=== PATIENT | male | born 1995 | race Caucasian/White ===

== ENCOUNTER 2022-02-07 07:41 | Emergency (ER) | payer BC, SELFPAY ==
--- NOTE | ~2022-02-07 | CT_ITS ---
EXAMINATION: CT HEAD WITHOUT CONTRAST CLINICAL INFORMATION: Left facial numbness. Confusion. COMPARISON: No relevant prior imaging. TECHNIQUE: Contiguous axial imaging was performed from the skull base to vertex without intravenous administration of contrast. This CT examination was performed using dose optimization techniques as appropriate, variously including the following: *Automated exposure control *Adjustment of mA and/or kV according to patient size (this includes techniques or standardized protocols for targeted exams where dose is matched to indication/reason for exam; i.e. extremities or head) *Use of iterative reconstruction technique DLP: 788 mGy-cm FINDINGS: There is no acute intracranial hemorrhage or abnormal extra-axial collection. No intracranial mass effect or midline shift. Lateral and third ventricles are normal. No hydrocephalus. Cerda-white matter differentiation is preserved and there is no evidence of acute territorial infarct. The calvarium and skull base are intact. Mastoid air cells and middle ear cavities are well aerated. No active paranasal sinus disease. CT/CT head/brain wo con IMPRESSION: Normal CT scan of the head.
[2022-02-07 08:03] VITALS: BP 150/96; PULSE 87; RESP 16; O2SAT 97
[2022-02-07 08:31] VITALS: BMI 30.8
--- NOTE | 2022-02-07 08:37 | ED_ITS ---
HPI - Neuro Symptoms/Deficit General Chief Complaint: Neuro Symptoms/Deficit Stated Complaint: facial numbness blurred vission Time Seen by Provider: 02/07/22 08:07 Source: patient Mode of arrival: ambulatory Limitations: no limitations History of Present Illness HPI Narrative: 26-year-old male who denies any medical history presenting to the ER with complaints of left facial numbness/weakness and left ear pain since 20:00 last night. Reports that he started to eat before he went to work and noticed that he was feeling funny on the left side of his face and was having difficulty chewing due to left-sided weakness of the face. He also reports a ringing sensation and pain to the left ear. Is concerned this could be related to wearing his air pods too long in his ears. 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 He reports that he does hike often. Denies any recent illnesses/viral syndromes that he is aware of, tick bites that he is aware of, history of herpes, fevers, chills, dizziness, headaches, neck pain/stiffness, trouble swallowing or breathing, chest pain or shortness of breath, dyspnea on exertion, orthopnea, palpitations, any other paresthesias, nausea/vomiting/diarrhea constipation, black or bloody stools, abdominal pain, recent falls or trauma, rashes or any other symptoms complaints or concerns at this time. Onset (ago): day(s) (Since 20:00 last night) Location: left face History of same: No Severity: mild Quality: weak, numb, tingling and constant Relieving factors: none Exacerbating factors: none Context: gradual onset On Anticoagulants: No Associated symptoms: other (See above) Treatments Prior to Arrival: none Related Data Previous Rx's Medication Instructions Recorded artificial tears(hypromellose) 0.5 1 drp ophthalmic (eye) BID PRN dry 02/07/22 % eye drops eye(s) #15 mL prednisone 20 mg tablet 60 mg PO DAILY bells palsy 7 days 02/07/22 #21 tabs valacyclovir 1 gram tablet 1,000 mg PO TID bells palsy 7 days 02/07/22 (Valtrex) #21 tabs Allergies Allergy/AdvReac Type Severity Reaction Status Date / Time No Known Allergies Allergy Verified 10/14/21 15:34 Review of Systems Review of Systems: Constitutional : No Fever, No Chills, No Night Sweats, No Fatigue, No Malaise ENT/Mouth : No Ear Pain, No Nasal Congestion, No Sinus Pain, No sore throat, No Rhinorrhea Eyes: +Blurry Vision, No Eye Pain, No Swelling, No Redness, No Foreign Body, No Discharge Cardiovascular : No Chest Pain, No SOB, No Dyspnea on Exertion, No Orthopnea, No Palpitations Respiratory : No Cough, No Sputum, No Wheezing, No Dyspnea Gastrointestinal : No Nausea, No Vomiting, No Diarrhea, No Constipation, No abdominal Pain, No Hematochezia, No Melena Genitourinary : No Dysuria, No Urinary Frequency, No Urinary Incontinence, No Urgency, No Flank Pain Musculoskeletal : No joint pain, No Myalgias Skin : No lacerations Neuro : + left facial droop/weakness/paresthesias, No Loss of Consciousness, No Dizziness, No Headache Yes all other systems are reviewed and are negative [facility] Past Medical History Attestation statement: The following information was validated with the patient. Source: old records reviewed and nursing notes reviewed Social History Social History Housing: House Patient Tobacco Use Status: Never used Tobacco e-Cigarette/Vaping Use: Never Used Second Hand Smoke Exposure: Yes Advance Directives: No Advance Directives Information Provided: Yes service: No Current occupational status: employed Current occupation: [employer] Current occupational exposures/hazards: No Cognitive needs: No Hearing needs: No Vision needs: No Physical Exam Vital Signs: Vital Signs: Last Vital Signs Pulse 87 02/07/22 08:03 Resp 16 02/07/22 08:03 BP 150/96 H 02/07/22 08:03 Pulse Ox 97 02/07/22 08:03 O2 Del Method 02/07/22 08:03 BMI result Body Mass Index 30.8 Vital signs have been reviewed as normal and appeared to be correct. Blood pressure 150/96. Heart rate normal. Respiration rate normal. Temperature normal. Oxygen saturation normal. Appearance: Alert. Oriented X3. No acute distress. Head: Normal external exam. Normocephalic. Atraumatic. Able to rotate head bilaterally. Eyes: PERRLA. EOMI. No nystagmus noted. Conjunctiva and sclera normal. unable to close left eye/lids, otherwise Eyelids normal. Corneal reflex normal. ENT: EAC normal. TM's Normal. Hearing normal. Pharynx normal. Uvula midline. tongue midline. Moist mucous membranes. No trismus noted. No drooling noted. No muffled voice noted. No nystagmus noted. Neck: Normal inspection. Neck supple. FROM. No adenopathy. Trachea midline. Thyroid Normal. No meningeal signs. No neck mass noted. CVS: Normal heart rate and rhythm. Heart sound normal. No murmurs noted. Pulses normal throughout. Respiratory: No respiratory distress. Painless inspiration. Breath sounds ayla l. No wheezes/rales/rhonchi noted. Chest nontender. No accessory muscle usage noted or decreased air movement noted. Abdomen: Soft and nontender. Bowel sounds normal in all 4 quadrants. No distention noted. No organomegaly noted. No visible injury noted. Back: No CVA tenderness. Full range of motion noted. Skin: Skin warm and dry. Normal skin color. Normal skin turgor. No rashes/lesions/lacerations noted. Extremities: No lower extremity edema. Extremities exhibit normal range of motion. Extremities nontender. Able to shrug shoulders bilaterally and keep up against resistance. Neuro: Oriented X 3. Patient noted to have left facial weakness unable to completely close his left eye/lids with associated left eyebrow sagging, and disappearance of the nasolabial fold and drooping at the left corner of the mouth/lip. Right facial muscles WNL. No weakness to right side of face. No additiona motor/sensory deficits except what is listed above. Reflexes normal. Moving all extremities. No focal motor deficits. Normal cognition. Speech normal. Gait normal. Strength 5/5 throughout for extremities b/l. No pronator drift. No tremor noted. No fasciculations noted. No rigidity noted. Muscle tone normal throughout. No asterixis noted. [id number] test normal. Heel to liriano test normal. Tandem gait normal. Does not sway with eyes open. Romberg test negative. Rapid alternating movement upper extremity normal. Rapid alternating movement lower extremity normal. Hand drop from overhead Misses face. Course Course Course Narrative: 8:30am - 26-year-old male who denies any medical history presenting to the ER with complaints of left facial numbness/weakness and left ear pain since 20:00 last night. Reports that he started to eat before he went to work and noticed that he was feeling funny on the left side of his face and was having difficulty chewing due to left-sided weakness of the face. He also reports a ringing sensation and pain to the left ear. Is concerned this could be related to wearing his air pods too long in his ears. 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 No other motor or sensory weakness. He has a normal steady gait. I discussed this case with Dr. Nayak and he agrees with the plan. Will obtain labs, CT scan of brain and treat for Granado's palsy. Patient understands agrees with this plan. Reevaluation(s) Reevaluation #1: - labs reviewed and patient is creatinine 1.46. Otherwise all other labs are within normal limits. UA revealed a trace of ketones otherwise no evidence of UTI. Lyme and HSV pending at this time. I did offer the patient a L of IV fluids although patient reports that he can just drink water he does not want to have an IV in at this time he just wants to go home and relax. I explained him this is very important due to he is dehydrated although he does not want an IV line or IV fluids at this time reports that he is not vomiting he can drink fluids on his own. Otherwise Will treat with Valtrex and steroids along with artificial tears. Will DC home with instructions return if any new or worsening symptoms follow up with primary care provider. Patient understands agrees with this plan. Time: 10:09 MDM - Neuro Symptoms/Deficit Medical Records Attestation: I reviewed the patient's medical records. Lab Data Attestation: I reviewed the patient's lab results. Result diagrams: 02/07/22 09:03 02/07/22 09:02 Labs: Lab Results 02/07/22 02/07/22 02/07/22 Range/Units 09:02 09:03 09:28 WBC 6.9 (4.8-10.8) X10*3/uL RBC 5.57 (4.60-5.80) X10*6/uL Hgb 16.0 (14.0-18.0) g/dl Hct 45.7 (42.0-52.0) % MCV 82.0 (80.0-98.0) fL MCH 28.7 (27.0-33.0) pg MCHC 35.0 (31.0-36.0) g/dl RDW 12.0 (11.0-16.0) % Plt Count 232 (160-400) X10*3/uL MPV 8.6 L (9.4-12.4) fL Immature Gran % (Auto) 0.3 (0.0-0.4) % Neut % (Auto) 53.9 (45-73) % Lymph % (Auto) 27.7 (20-40) % [place] % (Auto) 12.2 H (2-11) % Eos % (Auto) 5.5 H (0-4) % Baso % (Auto) 0.4 (0-2) % Lymph # (Auto) 1.9 (1.2-4.9) X10*3/uL [place] # (Auto) 0.8 (0.1-1.2) X10*3/uL Eos # (Auto) 0.4 (0.0-0.4) X10*3/uL Baso # (Auto) 0.0 (0.0-0.2) X10*3/uL Abs Immat Gran (auto) 0.02 (0.00-0.03) X10*3/uL Absolute Neuts (auto) 3.7 (2.0-8.3) x10*3/uL Absolute Nucleated RBC 0.000 (0.0-0.012) X10*3/uL Nucleated RBC % (auto) 0.0 (0.0-0.2) /100WBC Sodium 140 (135-145) mmol/L Potassium 4.5 (3.3-5.1) mmol/L Chloride 101 (96-108) mmol/L Carbon Dioxide 29 (22-29) mmol/L Anion Gap 15 (12-20) BUN 13 (9-16) mg/dL Creatinine 1.46 H (0.5-1.4) mg/dL Estim Creat Clear Calc 90.5 Estimated GFR 59 Random Glucose 105 (60-115) mg/dL Calcium 9.3 (8.4-10.2) mg/dL Magnesium 2.0 (1.6-2.6) mg/dL Total Bilirubin 1.0 (0.0-1.0) mg/dL AST 18 (5-37) U/L ALT 31 (0-40) U/L Alkaline Phosphatase 54 (39-117) U/L Total Protein 7.4 (6.5-8.0) g/dL Albumin 4.7 (3.5-5.0) g/dL Urine Color Yellow Urine Appearance Clear Urine pH 6.0 (5.0-8.0) Ur Specific [place] 1.025 (1.005-1.025) Urine Protein Trace (Neg-Trace) mg/dL Urine Glucose (UA) Negative (Negative) mg/dL Urine Ketones Trace (Negative) mg/dL Urine Blood Negative (Negative) Urine Nitrite Negative (Negative) Ur Leukocyte Esterase Negative (Negative) Imaging Data CT scan of brain without contrast: Attestation: I personally reviewed and interpreted this imaging study as follows: Radiologist's impression: FINDINGS: There is no acute intracranial hemorrhage or abnormal extra-axial collection. No intracranial mass effect or midline shift. Lateral and third ventricles are normal. No hydrocephalus. Cerda-white matter differentiation is preserved and there is no evidence of acute territorial infarct. The calvarium and skull base are intact. Mastoid air cells and middle ear cavities are well aerated. No active paranasal sinus disease. ? CT/CT head/brain wo con IMPRESSION: Normal CT scan of the head. Critical Care Time Critical Care Time Critical Care Time: Yes Total Critical Care Time: 60 Attestation: I personally attest to this time spent taking care of the patient Discharge Plan Discharge Clinical Impression: Facial paralysis/[place] palsy, Dehydration, JENNIFER (acute kidney injury) Patient Disposition: Home, Self-Care Instructions: Granado Palsy (ED) Additional Instructions: You have pending lab results if any are positive you will be contacted within 5- 7 days return if any new or worsening symptoms. You also are dehydrated you should drink at least a gal of water today and tomorrow to the help your kidney function/dehydration. You should also have repeat labs within 3-5 days by her primary care provider. Follow up with her primary care provider. Prescriptions: New prednisone 20 mg tablet 60 mg PO DAILY 7 Days Qty: 21 0RF valacyclovir [Valtrex] 1 gram tablet 1,000 mg PO TID 7 Days Qty: 21 0RF artificial tears(hypromellose) 0.5 % drops 1 drp ophthalmic (eye) BID PRN (Reason: dry eye(s)) Qty: 15 0RF Referrals: Navarro Ramirez, APARTMENT RENTAL CLERK-BC [Primary Care Provider] - 2 days Print Language: Lao
[2022-02-07 09:09] LABS: MANUAL DIFF FLAG NO
[2022-02-07 09:10] LABS: Basophils Percent Auto 0.4 % (0-2); Eosinophils Absolute Auto 0.4 X10*3/uL (0.0-0.4); Eosinophils Percent Auto 5.5 % (0-4); Hematocrit 45.7 % (42.0-52.0); Imm Gran Abs Auto 0.02 X10*3/uL (0.00-0.03); Imm Gran Pct Auto 0.3 % (0.0-0.4); Lymphocytes Absolute Auto 1.9 X10*3/uL (1.2-4.9); Lymphocytes Percent Auto 27.7 % (20-40); Mean Corpuscular Hemoglobin 28.7 pg (27.0-33.0); Mean Platelet Volume 8.6 fL (9.4-12.4); Monocytes Absolute Auto 0.8 X10*3/uL (0.1-1.2); Monocytes Percent Auto 12.2 % (2-11); Neutrophils Absolute Auto 3.7 x10*3/uL (2.0-8.3); Neutrophils Percent Auto 53.9 % (45-73); Platelet Count 232 X10*3/uL (160-400); Red Blood Count 5.57 X10*6/uL (4.60-5.80); White Blood Count 6.9 X10*3/uL (4.8-10.8)
[2022-02-07 09:34] LABS: Appearance Urine Clear; Color Urine Yellow; Glucose Urine UA Negative (Negative); Leukocyte Esterase Urine Negative (Negative); Nitrite Urine Negative (Negative); Specific Gravity - Urine 1.025 (1.005-1.025); Urine Blood Negative (Negative); Urine Ketones Trace mg/dL (Negative); Urine Protein Trace mg/dL (Neg-Trace)
[2022-02-07 09:39] LABS: Alanine Aminotransferase 31 U/L (0-40); Albumin Level 4.7 g/dL (3.5-5.0); Alkaline Phosphatase 54 U/L (39-117); Anion Gap 15 (12-20); Aspartate Amino Transferase 18 U/L (5-37); Blood Urea Nitrogen 13 mg/dL (9-16); Calcium 9.3 mg/dL (8.4-10.2); Carbon Dioxide 29 mmol/L (22-29); Chloride 101 mmol/L (96-108); Creatinine Clr Calc Pharmacy 90.5; Estimated Glomerular Filt Rate 59; Glucose Random 105 mg/dL (60-115); Potassium 4.5 mmol/L (3.3-5.1); Sodium 140 mmol/L (135-145); Total Protein 7.4 g/dL (6.5-8.0)
[2022-02-07] MEDS: predniSONE 20 MG TABLET 60 MG PO (09:44)
[2022-02-07] MEDS: valACYclovir HCL 1,000 MG TABLET 1000 MG PO (09:44)
[2022-02-07] MEDS: Artificial Tears 15 ML DROPS 1 DROP EYE-LEFT (10:16)
[2022-02-09 23:13] LABS: Herpes Simplex Type 1 IgG <0.90 index; Herpes Simplex Type 2 IgG <0.90 index
[2022-02-10 22:06] LABS: A. Phagocytphilium DNA,RT-PCR NOT DETECTED (NOT DETECTED); Babesia Microti DNA, RT-PCR NOT DETECTED (NOT DETECTED); Borrelia Miyamotoi,DNA RT-PCR NOT DETECTED (NOT DETECTED); E.Chaffeensis DNA RT-PCR NOT DETECTED (NOT DETECTED); Lyme(Borrelia ssp)DNA RT-PCR NOT DETECTED (NOT DETECTED)
[2022-02-11 13:48] LABS: Source-Tick borne disease BLOOD
[2022-02-14 21:22] LABS: HSV 1 IgM IFA Negative (Negative); HSV 2 IgM IFA Negative (Negative)
== END 2022-02-07 10:51 | disposition home or self-care (01) ==
PROVIDERS: Physician Assistant Medical; Emergency Provider Emergency Medicine; PCP Nurse Practitioner Family
DX: G51.0 Bell's palsy (principal); E86.0 Dehydration; N17.9 Acute kidney failure, unspecified; H92.02 Otalgia, left ear
CPT/HCPCS: 36415; 70450; 80053; 81003; 83735; 85025; 86695; 86696; 87798; 87801; 99283; 99284

== ENCOUNTER 2023-05-05 10:29 | Outpatient (AMB) | payer BC, SELFPAY ==
--- NOTE | 2023-05-05 11:01 | AM.OFFWIN_ITS ---
Intake Vital Signs 05/05/23 11:03 Height 5 ft 10 in Weight 89.811 kg BMI 28.4 BP 120/76 Blood Pressure Location Rt brachial Position Sitting Pulse 72 Pulse Source Pulse Oximeter Temp 97.7 F Temp Source Temporal Artery Scan Pulse Oximetry (%) 98 Oxygen Delivery Method Room Air Intake Visit Reasons: EP Eye Infection RED Intake Note: Pt is here c/o possible right eye infection. Patient Tobacco Use Status: Never used Tobacco Allergies No Known Allergies Allergy (Verified 05/05/23 11:04) Do you need a note to return to daycare/school/sports/work: No HPI HPI Comments History of Present Illness Details this is a 27-year-old male presenting with concerns that he may have pinkeye to r eye since wednesday . This has been going on for the past few days, reports redness, discharge from eye. No known sick contacts. Reports he left his contacts in for too long. Denies fevers, chills, chest pain, shortness of breath, nausea, vomiting, abdominal pain, headache, vision changes, painful vision or pain with eye movements PE w/ R conjunctival injection. No pain with EOM likely conjunctivitis versus allergic conjunctivitis. Unlikely wet macular degeneration, acute closed angle glaucoma. Unlikely foreign body, corneal ulcer. No signs of orbital or periorbital cellulitis. Will discharge with erythromycin. Educated patient on diagnosis and treatment plan, answered all question, patient verbalizes understanding. At this time patient will be discharged home, advised to return with new or worsening symptoms. Educated on worrisome signs and symptoms and when to return. At this time I feel comfortable discharge home. [facility] Medical History (Updated 12/09/22 @ 12:19 by Navarro Ramirez [facility]) Granado's palsy Social History Housing: House Patient Tobacco Use Status: Never used Tobacco e-Cigarette/Vaping Use: Never Used Second Hand Smoke Exposure: Yes service: No Current occupational status: employed Current occupation: [employer] Current occupational exposures/hazards: No Cognitive needs: No Hearing needs: No Vision needs: No Review of Systems Const Details: Constitutional : No Weight loss, No Fever, No Chills, No Fatigue, No Malaise ENT/Mouth : No sore throat, No Rhinorrhea Eyes: No Eye Pain, No Swelling, + Redness Cardiovascular : No Chest Pain, No SOB, No Dyspnea on Exertion, No Orthopnea, No Edema, No Palpitations Respiratory : No Cough, No Sputum, No Wheezing Gastrointestinal : No Nausea, No Vomiting, No Diarrhea, No Constipation, No abdominal Pain, No Hematochezia, No Melena Genitourinary : No Dysuria, No Urinary Frequency, No Hematuria, Musculoskeletal : No joint pain, No Myalgias, No Joint Swelling Skin : No Skin Lesions, No rash Neuro : No Weakness, No Numbness, No Dizziness, No Headache Psych : No Anxiety/Panic, No Depression All other systems reviewed and are negative All systems reviewed & are unremarkable except as noted in HPI and below Physical Exam Vital Signs: Last Vital Signs Temp 97.7 F 05/05/23 11:03 Pulse 72 05/05/23 11:03 BP 120/76 05/05/23 11:03 Pulse Ox 98 05/05/23 11:03 Oxygen Delivery Method Room Air 05/05/23 11:03 BMI result Body Mass Index 28.4 vss Appearance: Alert.? Oriented X3.? No acute distress.? Head: Normocephalic, atraumatic, no step-offs or deformities Eyes: Pupils equal, round and reactive to light.? R conjunctival injection. No pain with EOM ENT: Pharynx normal.? Neck: Normal inspection.? Neck supple.? CVS: Normal heart rate and rhythm.? Pulses normal.? Respiratory: No respiratory distress.? Breath sounds normal.? Skin: Skin warm and dry.? Normal skin color.? Normal skin turgor.? Extremities: No lower extremity edema.? No calf ttp. 5/5 strength to bilateral upper and lower extremities Neuro: Oriented X 3.? No motor deficit.? No sensory deficit. CN 2-12 intact Assessment & Plan Assessment & Plan (1) Conjunctivitis: Code(s): H10.9 - Unspecified conjunctivitis Plan Take your medications as prescribed. If you were prescribed antibiotics today, it is important that you take your medication to their entirety, do not skip any doses, do not finish them early. Follow-up with your primary care provider this week. Follow-up with refrigeration system installer Return to the emergency department with new or worsening symptoms. Such as fevers, chills, chest pain, shortness of breath, nausea, vomiting, dizziness, headache, vision changes, lethargy In case of emergency call 911 Medications: New erythromycin 0.5 inches ophthalmic (eye) TID 3.5 grams 0RF 7 days Coding Level of Care Code Est Pt Level 3 (24270) Diagnoses Conjunctivitis H10.9
[2023-05-05 11:03] VITALS: BP 120/76; PULSE 72; TEMP 36.5; O2SAT 98; BMI 28.4
== END 2023-05-05 11:39 | disposition home or self-care (01) ==
PROVIDERS: PCP Nurse Practitioner Family; Visit Provider Physician Assistant
DX: H10.9 Unspecified conjunctivitis (principal)
CPT/HCPCS: 99213

== ENCOUNTER 2023-06-07 15:56 | Outpatient (AMB) | payer BC, SELFPAY ==
--- NOTE | 2023-06-07 16:44 | MHC.PC.OV ---
Vital Signs 06/07/23 16:45 Height 5 ft 10 in Weight 185 lb BMI 26.5 BP 122/84 Blood Pressure Location Rt brachial Position Sitting Pulse 74 Pulse Source Pulse Oximeter Pulse Oximetry (%) 97 Oxygen Delivery Method Room Air Intake Visit Reasons: Annual PE Intake Note: Patient here for physical exam and would like to talk about groin pain when he is bending and standing and also severe pain in testicles (feels like pulsing). Allergies No Known Allergies Allergy (Verified 06/07/23 17:49) Medication List - Last Reconciled 06/07/23 by RICHI Nelson No Known Home Meds Tobacco use date assessed: 12/09/22 Dental Screening Dental Screen Date: 06/07/23 Did you have a dental visit in the last 12 months?: No Did you have a dental problem in the last 6 months where you did not have access to dental care?: No Was dental information given to patient?: No HPI Annual PE HPI Details Pt is here for a PE. Will order labs. HPI Comments History of Present Illness Details Pt is here for a PE. [facility] Medical History Granado's palsy Social History Housing: House Patient Tobacco Use Status: Never used Tobacco e-Cigarette/Vaping Use: Never Used Second Hand Smoke Exposure: Yes service: No Current occupational status: employed Current occupation: [employer] Current occupational exposures/hazards: No Cognitive needs: No Hearing needs: No Vision needs: No Questionnaire PHQ-9 Over the last 2 weeks, how often have you been bothered by any of the following problems? 1. Little interest or pleasure in doing things: not at all 2. Feeling down, depressed, or hopeless: not at all 3. Trouble falling or staying asleep, or sleeping too much: not at all 4. Feeling tired or having little energy: not at all 5. Poor appetite or overeating: not at all 6. Feeling bad about yourself - or that you are a failure or have let yourself or your family down: not at all 7. Trouble concentrating on things, such as reading the newspaper or watching television: not at all 8. Moving or speaking so slowly that other people could have noticed. Or the opposite - being so fidgety or restless that you have been moving around a lot more than usual: not at all 9. Thoughts that you would be better off or of hurting yourself in some way: not at all Total score: 0 Depression Screening Interpretation: Negative Depression Screening Done: Yes 15656 - PHQ-9 Billing: Yes Source: Developed by Drs. Young Song, Shreya Pink, Kb Tovar and colleagues, with an educational edyta from [employer]. Thrive Questionnaire Date Thrive assessed: 06/07/23 I am a: Patient What is your living situation today?: I have a steady place to live Within the past 12 months, did the food you bought not last and you didn't have the money to get more?: Never true Within the past 12 months, did you worry whether your food would run out before you got money to buy more?: Never true Do you have trouble paying for medicines?: No Do you have trouble getting transportation to medical appointments?: No Do you have trouble paying your heating and electricity bill?: No Do you have trouble taking care of your child, family member or friend?: No Do you have trouble with day-to-day activities such as bathing, preparing meals, shopping, managing finances, etc.?: No Are you currently unemployed and looking for a job?: No Are you interested in more education?: No AUDIT C Alcohol Use Questionnaire (AUDIT-C) 1. How often do you have a drink containing alcohol?: Never 3. How often do you have six or more drinks on one occasion?: Never Total Score: 0 Score Reviewed/Action Taken: No STANFORD-7 AMB Questionnaire STANFORD-7 Date STANFORD - 7 assessed: 06/07/23 Feeling nervous, anxious, or on edge: 3 = Nearly every day Not being able to stop or control worryin = Nearly every day Worrying too much about different things: 3 = Nearly every day Trouble relaxin = Not at all Being so restless that it is hard to sit still: 0 = Not at all Becoming easily annoyed or irritable: 0 = Not at all Feeling afraid as if something awful might happen: 2 = More than half the days Total STANFORD-7 score (0-4 normal; 5-9 mild; 10-14 moderate; 15-21 severe): 11 Source: Developed by Drs. Young Song, Shreya Pink, Kb Tovar and colleagues, with an educational edyta from [employer]. STANFORD-7 Assessment Billing STANFORD-7 Assessment Tool: STANFORD-7 Assessment 91581 Review of Systems Const Denies chills and Denies fever(s) Eyes Denies blurry vision ENT Denies vertigo, Denies dizziness and Denies sore throat Card Denies chest pain at rest, Denies chest pain with activity, Denies diaphoresis, Denies dyspnea and Denies dyspnea on exertion Resp Denies cough, Denies dyspnea, Denies dyspnea on exertion and Denies wheezing GI Denies abdominal pain, Denies melena, Denies hematochezia, Denies constipation, Denies diarrhea and Denies loose stools Denies hematuria Musc Denies numbness and Denies tingling Skin/Breast Denies lesions Neuro Denies vertigo, Denies dizziness, Denies numbness and Denies tingling Psych Denies anxiety, Denies depression, Denies homicidal ideation, Denies suicidal ideation and Denies other (substance abuse) Aller/Immun Denies wheezing Physical exam (Primary Care) Vital Signs: Last Vital Signs Pulse 74 06/07/23 16:45 BP 122/84 06/07/23 16:45 Pulse Ox 97 06/07/23 16:45 Oxygen Delivery Method Room Air 06/07/23 16:45 BMI result Body Mass Index 26.5 Tobacco/Smoking Status: Tobacco use Status Tobacco use date assessed 12/09/22 06/07/23 16:52 Patient Tobacco Use Status Never used Tobacco 06/07/23 16:52 e-Cigarette/Vaping Use Never Used 06/07/23 16:52 PHQ-9: PHQ-9 Score PHQ-9: Total score 0 06/07/23 17:21 Depression Screening Interpretation: Negative Thrive Assessment: Date of Thrive Assessment Date Thrive assessed 06/07/23 06/07/23 17:21 Const General: cooperative Nutritional Appearance: well nourished Orientation/consciousness: patient oriented x3 HENMT Head: Yes normal to inspection, Yes normocephalic and Yes atraumatic Ears: TM's normal bilaterally, TM normal on the right and TM normal on the left Eyes General: appearance normal, both eyes and all related structures Alignment and Position: alignment normal and position normal Neck Neck: Yes normal visual inspection and Yes no lymphadenopathy Thyroid: Thyroid normal Resp Effort & Inspection: normal respiratory effort Auscultation: clear to auscultation bilaterally Cardio Rate: regular rate Rhythm: regular rhythm Heart sounds: S1 normal heart sound present, S2 normal heart sound present and no murmurs GI Palpation (GI): Soft to palpation and nontender Auscultation: normal bowel sounds Male General Exam: Yes normal external exam Penis: normal penis Scrotum: scrotum normal, testes descended bilaterally and no inguinal hernias Testes: no testicular mass Skin Rashes: no rashes Neuro General: patient oriented x3, moves all extremities, no focal motor deficits and deep tendon reflexes 2+ bilaterally Romberg Test: Negative Extrem Right lower extremity: no edema Left lower extremity: no edema Psych Appearance: grossly normal Mental Status: mental status grossly normal Speech and movement: Normal speech and movement present Affect: normal affect Attitude: cooperative Thought process: Normal thought process present Thought content: Normal thought content present Insight: Good insight present (Psych) Judgement: Good judgement present (Psych) Assessment and Plan Assessment & Plan (1) Physical exam: Code(s): Z00.00 - Encounter for general adult medical examination without abnormal findings Coding Level of Care Code Est Pt Prev Care 18-39y(06737) Diagnoses Physical exam Z00.00 Additional Codes STANFORD-7 Assessment Billing - STANFORD-7 Assessment Tool: STANFORD-7 Assessment 42224 ([id number])
[2023-06-07 16:45] VITALS: BP 122/84; PULSE 74; O2SAT 97; BMI 26.5
== END 2023-06-07 17:13 | disposition home or self-care (01) ==
PROVIDERS: PCP Nurse Practitioner Family; Visit Provider Nurse Practitioner Family
DX: Z00.00 Encounter for general adult medical examination without abnormal findings (principal)
CPT/HCPCS: 99395

== ENCOUNTER 2023-07-20 14:53 | Outpatient (AMB) | payer BC, SELFPAY ==
[2023-07-20 14:58] VITALS: BP 110/80; PULSE 97; TEMP 36.8; O2SAT 98; BMI 28.4
--- NOTE | 2023-07-20 14:58 | MHC.OFFWIV ---
Intake Vital Signs 07/20/23 14:58 Height 5 ft 10 in Weight 198 lb BMI 28.4 BP 110/80 Blood Pressure Location Lt brachial Position Sitting Pulse 97 Pulse Source Pulse Oximeter Temp 98.3 F Temp Source Temporal Artery Scan Pulse Oximetry (%) 98 Oxygen Delivery Method Room Air Intake Visit Reasons: Est/lump on back of neck (lobby ) Intake Note: pt is here today for lump on back of neck started 2 days ago Patient Tobacco Use Status: Never used Tobacco Allergies No Known Allergies Allergy (Verified 07/20/23 15:04) Do you need a note to return to daycare/school/sports/work: No HPI HPI Comments History of Present Illness Details Patient is a 28-year-old male in for a sick visit. He states that when he noticed this morning a small lump below his ear. He states that he popped an ingrown hair in that region and noticed that there was a lump there. States that it does not hurt, but that it does feel sensitive. He is denying recent fevers, dizziness, headache, chest pain, nausea, diarrhea, vomiting, shortness of breath. [facility] Medical History Granado's palsy Social History Housing: House Patient Tobacco Use Status: Never used Tobacco e-Cigarette/Vaping Use: Never Used Second Hand Smoke Exposure: Yes service: No Current occupational status: employed Current occupation: [employer] Current occupational exposures/hazards: No Cognitive needs: No Hearing needs: No Vision needs: No Physical Exam Vital Signs: Last Vital Signs Temp 98.3 F 07/20/23 14:58 Pulse 97 07/20/23 14:58 BP 110/80 07/20/23 14:58 Pulse Ox 98 07/20/23 14:58 Oxygen Delivery Method Room Air 07/20/23 14:58 BMI result Body Mass Index 28.4 Const Other: Appearance: Alert.? Oriented X3.? No acute distress.? Head: Normocephalic, atraumatic. Eyes: Pupils equal, round and reactive to light.? ENT: Pharynx normal.?TM intact and pearly su. Neck: Normal inspection.? Neck supple.?Small, nontender movable mass inferior to left ear. No mastoid tenderness. CVS: Normal heart rate and rhythm.? Pulses normal.? Respiratory: No respiratory distress.? Breath sounds normal.? Neuro: Oriented X 3.? No motor deficit.? No sensory deficit. CN 2-12 intact Assessment & Plan Assessment & Plan (1) Lump in neck: Comment: Will order ultrasound of the head and neck to evaluate the area. Will get back to patient with results. Patient has been instructed on signs of worsening symptoms and when to come back to the office or when to present to the emergency department. Code(s): R22.1 - Localized swelling, mass and lump, neck Plan: Take your medications as prescribed. If you were prescribed antibiotics today, it is important that you take your medication to their entirety, do not skip any doses, do not finish them early. Follow-up with your primary care provider this week. Return to the emergency department with new or worsening symptoms. Such as fevers, chills, chest pain, shortness of breath, nausea, vomiting, dizziness, headache, vision changes, lethargy In case of emergency call 911 Plan Follow-up PCP Orders: Orders US soft tiss head and/or neck Today R22.1 - Localized swelling, mass and lump, neck Coding Level of Care Code Est Pt Level 3 (34231) Diagnoses Lump in neck R22.1 Time Spent (min) 25
== END 2023-07-20 16:29 | disposition home or self-care (01) ==
PROVIDERS: PCP Nurse Practitioner Family; Visit Provider Nurse Practitioner Primary Care
DX: R22.1 Localized swelling, mass and lump, neck (principal)
CPT/HCPCS: 99214

== ENCOUNTER 2023-07-29 15:22 | Outpatient (REF) | payer BC, SELFPAY ==
--- NOTE | ~2023-07-29 | US_ITS ---
EXAMINATION: US SOFT TISSUE NECK CLINICAL INFORMATION: Small lump inferior to the left ear. COMPARISON: None available. TECHNIQUE: Ultrasound of the neck soft tissues is performed with high- frequency su-scale imaging and color Doppler. FINDINGS: Targeted sonographic evaluation in the area of clinical concern in the left superior lateral neck underneath and posterior to the ear (level 5) with visualization of a few non-pathologically enlarged benign-appearing lymph nodes with preserved fatty cherri, well-defined borders, reniform shape and normal cortex, most likely reactive. US/US soft tiss head and/or neck IMPRESSION: Benign-appearing lymph nodes in the area of clinical concern, likely reactive.
== END 2023-07-29 15:23 | disposition home or self-care (01) ==
LOC: HO.HMGCX 15:22
PROVIDERS: PCP Nurse Practitioner Family; Visit Provider Nurse Practitioner Primary Care
DX: R22.1 Localized swelling, mass and lump, neck (principal)
CPT/HCPCS: 76536

== ENCOUNTER 2024-08-16 15:32 | Outpatient (AMB) | payer BC, SELFPAY ==
[2024-08-16 15:35] VITALS: BP 126/80; PULSE 87; RESP 20; TEMP 37.1; O2SAT 97; BMI 32.3
--- NOTE | 2024-08-16 15:35 | A.OFFPC_ITS ---
Vital Signs 08/16/24 15:35 Height 5 ft 10 in Weight 225 lb BMI 32.3 BP 126/80 Blood Pressure Location Lt brachial Position Sitting Respiration 20 Pulse 87 Pulse Source Pulse Oximeter Temp 98.7 F Temp Source Oral Pulse Oximetry (%) 97 Oxygen Delivery Method Room Air Intake Visit Reasons: PE Intake Note: Pt is here today for PE. Allergies No Known Allergies Allergy (Verified 08/16/24 15:38) Medication List - Last Reconciled 08/16/24 by RICHI Nelson No Known Home Meds Tobacco use date assessed: 08/16/24 Dental Screening Dental Screen Date: 08/16/24 Did you have a dental visit in the last 12 months?: Yes Did you have a dental problem in the last 6 months where you did not have access to dental care?: No Was dental information given to patient?: Patient has dentist HPI PE HPI Details History of Present Illness The patient is a 29-year-old male presenting with impacted cerumen in the right ear. During the visit, I observed the cerumen buildup, which the patient confirmed was not causing pain or any hearing difficulties. The patient opted against immediate intervention in the clinic, expressing his intention to utilize a cerumenolytic agent, Deprox, at home to address the issue. Health Maintenance Social History Review of Systems - Cardiovascular: Denies chest pain, michele rtness of breath - Gastrointestinal: Denies blood in stoo l, constipation, diarrhea - Psychiatric: Denies anxiety, depressio n, suicidal ideation, homicidal ideation Physical Exam General: Cooperative, healthy appearing, comfortable, no acute distress and well developed Orientation: Patient oriented x3 Limitations: No limitations Head: Normal to inspection Ears: Hearing grossly normal bilaterally, cerumen noted, especially on the right side Nose: Normal external nose present Face and sinus: Normal facial exam Eyes: Appearance normal, both eyes and all related structures Neck: Normal visual inspection and Yes full ROM Respiratory: Normal respiratory effort and able to speak in complete sentences. Clear to auscultation bilaterally Cardiovascular: Regular rate and rhythm. Normal S1 and S2 GI: Normal to inspection. Soft to palpation and nontender Skin: No rashes or lesions noted Neuro: Patient oriented x3 Extremities: Normal to inspection Results Plan The management plan for the patient's impacted cerumen involves the use of a cerumenolytic agent, Debrox, which the patient will employ at home. In-office procedures were refused, and immediate further evaluation is not needed as the patient exhibits no concerning symptoms. Monitoring for any progression or complications is advised. Discussion Notes During today's visit, I discussed with the patient the nature of his impacted cerumen and the potential management options, including in-office irrigation. The patient expressed a preference to manage his condition using a cerumenolytic agent at home. We discussed the expected safe use of Debrox and that he should seek further assistance should symptoms develop or the problem persist. There was no need for additional diagnostic studies at this time. Patient Instructions - Purchase and use Debrox as instructed for earwax removal. - Monitor for any changes or worsening s ymptoms, such as pain or hearing loss. - Seek further medical advice if symptom s persist or worsen after treatment. [facility] Medical History Granado's palsy Surgical History No pertinent past surgical history Social History Housing: House Patient Tobacco Use Status: Never used Tobacco e-Cigarette/Vaping Use: Never Used Second Hand Smoke Exposure: Yes service: No Current occupational status: employed Current occupation: [employer] Current occupational exposures/hazards: No Cognitive needs: No Hearing needs: No Vision needs: No Questionnaire PHQ-9 Over the last 2 weeks, how often have you been bothered by any of the following problems? 1. Little interest or pleasure in doing things: not at all 2. Feeling down, depressed, or hopeless: not at all 3. Trouble falling or staying asleep, or sleeping too much: not at all 4. Feeling tired or having little energy: not at all 5. Poor appetite or overeating: not at all 6. Feeling bad about yourself - or that you are a failure or have let yourself or your family down: not at all 7. Trouble concentrating on things, such as reading the newspaper or watching television: not at all 8. Moving or speaking so slowly that other people could have noticed. Or the opposite - being so fidgety or restless that you have been moving around a lot more than usual: not at all 9. Thoughts that you would be better off or of hurting yourself in some way: not at all Total score: 0 Depression Screening Interpretation: Negative Depression Screening Done: Yes 63971 - PHQ-9 Billing: Yes Source: Developed by Drs. Young Song, Shreya Pink, Kb Tovar and colleagues, with an educational edyta from [employer]. Thrive Questionnaire Date Thrive assessed: 08/16/24 I am a: Patient What is your living situation today?: I have a steady place to live Within the past 12 months, did the food you bought not last and you didn't have the money to get more?: I choose not to answer this question Within the past 12 months, did you worry whether your food would run out before you got money to buy more?: I choose not to answer this question Do you have trouble paying for medicines?: No Do you have trouble getting transportation to medical appointments?: No Do you have trouble paying your heating and electricity bill?: No Do you have trouble taking care of your child, family member or friend?: No Do you have trouble with day-to-day activities such as bathing, preparing meals, shopping, managing finances, etc.?: No Are you currently unemployed and looking for a job?: I choose not to answer this question Are you interested in more education?: I choose not to answer this question Please select the resources that you would like help with: None Currently or been in a relationship where the following occur: I choose not to answer THRIVE Score: 0 AUDIT C Alcohol Use Questionnaire (AUDIT-C) 1. How often do you have a drink containing alcohol?: Never 3. How often do you have six or more drinks on one occasion?: Never Total Score: 0 STANFORD-7 AMB Questionnaire STANFORD-7 Date STANFORD - 7 assessed: 08/16/24 Feeling nervous, anxious, or on edge: 0 = Not at all Not being able to stop or control worryin = Not at all Worrying too much about different things: 0 = Not at all Trouble relaxin = Not at all Being so restless that it is hard to sit still: 0 = Not at all Becoming easily annoyed or irritable: 0 = Not at all Feeling afraid as if something awful might happen: 0 = Not at all Total STANFORD-7 score (0-4 normal; 5-9 mild; 10-14 moderate; 15-21 severe): 0 Source: Developed by Drs. Young Song, Shreya Pink, Kb Tovar and colleagues, with an educational edyta from [employer]. STANFORD-7 Assessment Billing STANFORD-7 Assessment Tool: STANFORD-7 Assessment 14686 Physical exam (Primary Care) Vital Signs: Last Vital Signs Temp 98.7 F 08/16/24 15:35 Pulse 87 08/16/24 15:35 Resp 20 08/16/24 15:35 BP 126/80 08/16/24 15:35 Pulse Ox 97 08/16/24 15:35 Oxygen Delivery Method Room Air 08/16/24 15:35 BMI result Body Mass Index 32.3 Tobacco/Smoking Status: Tobacco use Status Tobacco use date assessed 08/16/24 08/16/24 15:43 Patient Tobacco Use Status Never used Tobacco 08/16/24 15:43 e-Cigarette/Vaping Use Never Used 08/16/24 15:35 PHQ-9: PHQ-9 Score PHQ-9: Total score 0 08/16/24 15:43 Depression Screening Interpretation: Negative Thrive Assessment: Date of Thrive Assessment Date Thrive assessed 08/16/24 08/16/24 15:43 Currently or been in a relationship where the following occur: I choose not to answer Coding Level of Care Code Est Pt Prev Care 18-39y(76578) Diagnoses Physical exam Z00. Additional Codes STANFORD-7 Assessment Billing - STANFORD-7 Assessment Tool: STANFORD-7 Assessment 86387 ([id number]) PHQ-9 - 22655 - PHQ-9 Billing: Yes ([id number]) Assessment & Plan Assessment & Plan (1) Physical exam: Code(s): Z00.00 - Encounter for general adult medical examination without abnormal findings Category: Medical Plan . Orders: Orders Comprehensive [place]. Panel Fast Today Z00.00 - Encounter for general adult medical examination without abnormal findings TSH reflex Free T4 Today Z00.00 - Encounter for general adult medical examination without abnormal findings Complete Blood Count Auto Diff Today Z00.00 - Encounter for general adult medical examination without abnormal findings UA CC w/rflx Micro + Cult Today Z00.00 - Encounter for general adult medical examination without abnormal findings Lipid Panel Today Z00.00 - Encounter for general adult medical examination without abnormal findings
--- OUTSIDE RECORDS SUMMARY | 2024-08-16 19:03 | XMS_ITS | Clinical Summary ---
Author Organization [facility] Address [address] [place] [address] Care Team Providers Care Cross Tie Turner Name Role Phone Unavailable Primary Care Provider Unavailabl e Medications No known medications Social History Tobacco Use Types Packs/Day Years Used Date Smoking Tobacco: Never Assessed Sex and Gender Information Value Date Recorded Sex Assigned at Not on file Gender Identity Not on file Sexual Orientation Not on file Job Start Date Occupation Industry Not on file Not on file Not on file Last Filed Vital Signs Vital Sign Reading Time Taken Comments Blood Pressure - - Pulse - - Temperature - - Respiratory Rate - - Oxygen Saturation - - Inhaled Oxygen Concentration - - Weight 98 kg (216 lb) 10/05/2022 10:19 AM EDT Height 177.8 cm (5' 10 ) 10/05/2022 10:19 AM EDT Body Mass Index 30.99 10/05/2022 10:19 AM EDT Plan of Treatment Health Maintenance Due Date Last Done Comments Hepatitis C Screening 1996 COVID-19 Vaccine (#1) 1996 Depression Screening 2008 Preventative Health Evaluation 2014 DTap / Tdap / Td (8 - Td or Tdap) 01/28/2019 01/28/2009, 01/28/2009, 02/28/2002, Additional history exists BMI Counseling 10/06/2023 10/05/2022 Influenza Vaccine (#1) 2024 Hepatitis B Vaccines Completed 01/04/1997, 1996, 1996 Pneumococcal Vaccine Aged Out No long er eligible based on patient's age to complete this topic RSV Ped < 20 months Aged Out No longe r eligible based on patient's age to complete this topic
--- OUTSIDE RECORDS SUMMARY | 2024-08-16 19:03 | XMS_ITS | Clinical Summary ---
Author Organization [facility] Address [address] [place] [id number] Phone Care Team Providers Care Market Analysis Director Name Role Phone Kevyn Granado MD Primary Care Provider [phone] Allergies No known active allergies Medications No known medications Immunizations Immunization Administration Dates Next Due DTaP 5 01/28/2009, 2,01/28/1998,11/22,1996,1996 HPV Vaccine 9 Valent 01/22/2016 Hep B, ped/adol 01/04/1997,1996,1996 Hib (PRP-T) 08/24/1997, 7,1996,08/07 IPV 02/28/2002, 8,1996,09/21,1996 MMR 01/17/1999,08/24/1997 Meningococcal Conj (Menactra) MCV4P 02/12/2014,0 01/28/2009 Td (adult) (Tenivac), 5 Lf t etanus toxoid, PF, adsorbed 05/31/2000 Tdap 01/28/2009 Family History Medical History Relation Name Comments No Known Problems Father No Known Problems Maternal Grandfather No Known Problems Maternal Grandmother No Known Problems Mother No Known Problems Paternal Grandfather No Known Problems Paternal Grandmother Relation Name Status Comments Father Maternal Grandfather Maternal Grandmother Mother Paternal Grandfather Paternal Grandmother Social History Tobacco Use Types Packs/Day Years Used Date Smoking Tobacco: Smoker, Current Status Unknown Comments:Current smokeless t obacco user (eg, chew, snuff) (PV)1 Sex and Gender Information Value Date Recorded Sex Assigned at Not on file Legal Sex Male 6:29 PM EDT Gender Identity Not on file Sexual Orientation Not on file Last Filed Vital Signs Vital Sign Reading Time Taken Comments Blood Pressure 122/80 07/18/2018 9:55 AM EST Pulse 66 01/22/2016 4:05 PM EDT Temperature 37.4 ??C (99.3 ??F) 07/18/2018 9:55 AM ES T Respiratory Rate - - Oxygen Saturation - - Inhaled Oxygen Concentration - - Weight 84.5 kg (186 lb 5 oz) 07/18/2018 9:55 AM EST Height 176.5 cm (5' 9.5 ) 07/18/2018 9:55 AM EST Body Mass Index 27.12 07/18/2018 9:55 AM EST Plan of Treatment Health Maintenance Due Date Last Done Comments Varicella Vaccines (1 of 2 - 13+ 2-dose series) 2009 Consider Men B Vaccine (1 of 2 - Bexsero 2-dose series) 2012 HPV Vaccines (2 - Male 3-dose series) 02/19/2016 01/22/2016 DTaP,Tdap,and Td Vaccines (8 - Td or Tdap) 01/28/2019 01/28/2009, 01/28/2009, 02/28/2002, Additional history exists Influenza Vaccines (#1) 2024 COVID-19 Vaccine ( season) 2024 Hepatitis B Vaccines Completed 01/04/1997, 1996, 1996 HIB Vaccines Completed 08/24/1997, 09/1996, 1996, Additional history exists MMR Vaccines Completed 01/17/1999, 08/24/1997 IPV Vaccines Completed 02/28/2002, 01/19, 1996, Additional history exists Meningococcal Vaccine Completed 02/12/2014, 009 Hepatitis A Vaccines Aged Out No long er eligible based on patient's age to complete this topic Men B Vaccine Aged Out No longer elig ible based on patient's age to complete this topic Pneumococcal Vaccine Aged Out No long er eligible based on patient's age to complete [place] [id number] [facility] PPO Care Teams Market Analysis Director Relationship Specialty Start Date End Date Kevyn Granado MD [address] [place] [address] [place] [phone] PCP - General 10/27/17
--- OUTSIDE RECORDS SUMMARY | 2024-08-16 19:03 | XMS_ITS | Encounter Summary ---
Author Organization [facility] Address [address] [place] [address] Phone Care Team Providers Care Print Binding And Finishing Worker Name Role Phone Kevyn Granado MD Primary Care Provider [phone] Encounter Details Date Type Department Care Team (Late st Contact Info) Description 04/24/2011 Conversion Encounter [facility] [address] [place] [address] [place] [phone] Social History Tobacco Use Types Packs/Day Years Used Date Smoking Tobacco: Never Assessed Sex and Gender Information Value Date Recorded Sex Assigned at Not on file Legal Sex Male 6:29 PM EDT Gender Identity Not on file Sexual Orientation Not on file documented as of this encounter Plan of Treatment Not on file documented as of this encounter Visit Diagnoses Not on filedocumented in this encounter Care Teams Print Binding And Finishing Worker Relationship Specialty Start Date End Date Kevyn Granado MD [address] [place] [address] [place] [phone] PCP - General 10/27/17 documented as of this encounter
== END 2024-08-16 16:21 | disposition home or self-care (01) ==
PROVIDERS: PCP Nurse Practitioner Family; Visit Provider Nurse Practitioner Family
DX: Z00.00 Encounter for general adult medical examination without abnormal findings (principal)

== ENCOUNTER → 2024-08-16 15:32 | Outpatient (BNVA) | payer BC, SELFPAY | PROVIDERS: PCP Nurse Practitioner Family; Visit Provider Nurse Practitioner Family | DX: Z00.01 Encounter for general adult medical examination with abnormal findings (principal); H61.21 Impacted cerumen, right ear | CPT/HCPCS: 96127 ==